=== PATIENT | male | born 1955 | race Hispanic/Latino ===

== ENCOUNTER 2022-01-05 07:19 | Day surgery (SDC) | payer OTHER ==
[2022-01-05] MEDS ORDERED: NA CHLORIDE 0.9% 1,000 ML ONE (07:40)
[2022-01-05] MEDS ORDERED: propofoL 200 MG/20 ML VIAL IV ONE ×2 (08:36)
[2022-01-05] MEDS ORDERED: GLYCOPYRROLATE 0.2 MG/ML SYR ONE (08:36)
[2022-01-05] MEDS ORDERED: LIDOCAINE 1% MPF 2 ML AMPULE ONE (08:37)
[2022-01-05] MEDS ORDERED: EPINEPHRINE/PF 1 MG/ML AMP ONE (09:22)
--- NOTE | 2022-01-05 09:38 | ENDO RPT ---
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 ESTIMATED BLOOD LOSS: None CONSENT: The patient understands the risks and benefits of the procedure and understands that these risks include, but are not limited to: sedation, allergic reaction, infection, perforation and/or bleeding. Alternative means of evaluation and treatment include, among others: physical exam, x-rays, and/or surgical intervention. The patient elects to proceed with this endoscopic procedure. DESCRIPTION OF PROCEDURE: During intra-op preparation period all mechanical medical equipment was checked for proper function. Hand hygiene and appropriate measures for infection prevention was taken. Procedure, possible complications, alternatives including, but not limited to possibility of bleeding, perforation, tear, infection, sepsis, need for surgery, need for blood transfusion, were explained to the patient. After the risks, benefits and alternatives of the procedure were thoroughly explained, Informed consent was verified, confirmed and timeout was successfully executed by the treatment team. The patient was placed in the left lateral position. A digital rectal exam was performed and revealed internal hemorrhoids. After appropriate level of anesthesia, the scope was passed. The EC-[id number] ([id number]) endoscope was introduced through the anus and advanced to the ileum. The quality of the prep was poor. The instrument was then slowly withdrawn as the colon was fully examined. Scope withdrawal time was 15 minutes. COLON FINDINGS: There was moderate diverticulosis noted in the sigmoid colon with associated muscular hypertrophy and colonic spasm. No bleeding was noted from the diverticulosis. Two smooth semi-pedunculated polyps ranging between 5-9mm in size were found at the cecum and in the sigmoid colon. A polypectomy was performed using snare cautery and with cold forceps. The resection was complete, the polyp tissue was completely retrieved and sent to histology. A circumferential patch of abnormal mucosa was found in rectum seen upon the retroflexed view. The mucosa was congested, erythematous and had petechiae and scarring. A biopsy of the area was performed using cold forceps, the area had some minor bleeding controlled with 2cc epinepherine injection. 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 A tattoo was applied. Injection (tattooing) was performed. Moderate sized internal hemorrhoids were found. Retroflexed views obtained. The scope was then completely withdrawn from the patient and the procedure terminated. ADVERSE EVENTS: There were no complications. IMPRESSIONS: 1. There was moderate diverticulosis noted in the sigmoid colon 2. Two semi-pedunculated polyps ranging between 5-9mm in size were found at the cecum and in the sigmoid colon; polypectomy was performed using snare cautery and with cold forceps 3. Circumferential abnormal mucosa was found in rectum seen upon the retroflexed view; The mucosa was congested, erythematous and had petechiae and scarring; biopsy of the area was performed using cold forceps, then the area of bleeding from biopsy was injected with epinepherine with good hemostasis 4. Small suspected fistula in the sigmoid colon; a tattoo was applied; Injection (tattooing) was performed @ 19cm from anal verge. 5. Moderate sized internal hemorrhoids RECOMMENDATIONS: 1. avoid NSAIDS for 2 weeks 2. await biopsy results 3. follow-up: office 2 week(s) 4. Monitor for any evidence of rectal bleeding. 5. yearly hemoquant 6. hemorrhoidal hygiene 7. low fiber / diverticular diet 8. increase dietary water RECALL: Return in 1 year(s) for Colonoscopy, pending biopsy results. Pending Biopsy Ernesto Shin DR eSigned: Ernesto Shin DR 01/05/2022 9:37 AM cc: CPT CODES: ICD9 CODES: PATIENT NAME: Madhu Cid MR#: [id number]
[2022-01-05 11:03] VITALS: O2SAT 96
[2022-01-05 11:04] VITALS: BP 122/69; TEMP 97.8
== END 2022-01-05 10:10 | disposition home or self-care (01) ==
LOC: OR 07:19
PROVIDERS: ATTEND Surgery
PROC: 0DBP8ZX Excision of Rectum, Via Natural or Artificial Opening Endoscopic, Diagnostic (ICD-10-PCS; 2022-01-05)
PROC: 0DBN8ZX Excision of Sigmoid Colon, Via Natural or Artificial Opening Endoscopic, Diagnostic (ICD-10-PCS; 2022-01-05)
PROC: 3E0H8GC Introduction of Other Therapeutic Substance into Lower GI, Via Natural or Artificial Opening Endoscopic (ICD-10-PCS; 2022-01-05)
PROC: 3E0H8KZ Introduction of Other Diagnostic Substance into Lower GI, Via Natural or Artificial Opening Endoscopic (ICD-10-PCS; 2022-01-05)
PROC: 0DBH8ZX Excision of Cecum, Via Natural or Artificial Opening Endoscopic, Diagnostic (ICD-10-PCS; principal; 2022-01-05 08:45)
DX: Z12.11 Encounter for screening for malignant neoplasm of colon (principal); K64.8 Other hemorrhoids; K57.30 Diverticulosis of large intestine without perforation or abscess without bleeding; D12.0 Benign neoplasm of cecum; Z85.46 Personal history of malignant neoplasm of prostate; I10 Essential (primary) hypertension; E11.9 Type 2 diabetes mellitus without complications; K21.9 Gastro-esophageal reflux disease without esophagitis
CPT/HCPCS: 45385; 45380; 45382; 45381; 82947; 88305; J2704; J0171; J7030